=== PATIENT | female | born 1935 | race Caucasian/White ===

== ENCOUNTER → 2018-09-30 | Outpatient (CLI) | payer MEDICARE, BC ==
--- NOTE | 2018-09-30 09:31 | FL ---
EXAMINATION TYPE: FL barium swallow DATE OF EXAM: 09/30/2018 CLINICAL HISTORY: Dysphagia per order. Reflux. Food getting stuck upper thorax per patient. TECHNIQUE: A double contrast esophagram is performed utilizing air and barium. A total of 36 second s of fluoroscopic time was utilized during procedure. 41 spot images are saved. COMPARISON: CT abdomen and pelvis April 24, 2015. FINDINGS: The esophagus shows satisfactory motility and emptying into the stomach. No evidence of fi xed hiatal hernia or stricture noted. No abnormal outpouching or diverticulum is present. No signific ant gastroesophageal reflux was seen during real time performance of this study. IMPRESSION: No significant abnormality is seen to account for patient's symptoms.
== END | disposition home or self-care (01) ==
LOC: RADFLWHC 08:48
PROVIDERS: ATTEND Family Medicine
DX: R13.10 Dysphagia, unspecified (principal)
CPT/HCPCS: 74220

== ENCOUNTER → 2019-04-27 | Outpatient (CLI) | payer MEDICARE, BC ==
[2019-04-27 15:14] LABS: African American GFR (CKD) >90 (>60 ml/min/1.73 sqM); Blood Urea Nitrogen 23 mg/dL (7-17); Non-African American GFR(CKD) 85 (>60 ml/min/1.73 sqM)
--- NOTE | 2019-04-27 15:52 | CT ---
EXAMINATION TYPE: CT soft tissue neck w con DATE OF EXAM: 04/27/2019 COMPARISON: None HISTORY: sore throat, cough CT DLP: 318.5 mGycm CONTRAST: CT scan of the neck is performed with IV Contrast, patient injected with 100 mL of Isovue 300. Contrast enhanced CT of the neck was performed from the skull base through the lung apices. AIRWAY: The supraglottic, glottic, and subglottic portions of the airway appear patent and free of mass. SALIVARY GLANDS: The submandibular and parotid glands are free of mass or inflammatory process. THYROID GLAND: No nodules or masses seen. LYMPH NODES: No adenopathy seen greater than 1cm. LUNG APICES: No nodule or mass is seen. OTHER: Vascular structures are patent. Postoperative changes upper cervical spine posteriorly. Sever e multilevel degenerative disc disease and spondylosis. No abscess seen. IMPRESSION: No distinct abnormality to account for the patient's symptoms.
== END | disposition home or self-care (01) ==
LOC: RADCTMAIN 14:39
PROVIDERS: ATTEND Otolaryngology
DX: J01.90 Acute sinusitis, unspecified (principal); R05 Cough; Z88.2 Allergy status to sulfonamides
CPT/HCPCS: 82565; 84520; 70491; 36415; Q9967

== ENCOUNTER → 2022-11-14 | Outpatient (CLI) | payer MEDICARE ==
--- NOTE | 2022-11-14 09:27 | US ---
EXAMINATION TYPE: US mass soft tissue chest/back DATE OF EXAM: 11/14/2022 COMPARISON: NONE CLINICAL INDICATION: Female, 87 years old with history of D17.1 BENIGN LIPOMATOUS NEOPLASM OF SKIN, S UBCU OF; Large palpable of lower right/gluteal region x 40-50 years that patient states has moved. N o pain. TECHNIQUE: Multiple sonographic images taken of patients area of concern FINDINGS: At palpable region, hypoechoic nonvascular lesion = 8.3 x 7.4 x 4.2 cm IMPRESSION: Nonvascular hypoechoic mass may reflect a lipoma however mass of other etiology is not e xcluded. Consider MR correlation. Correlate clinically.
== END | disposition home or self-care (01) ==
LOC: RADUSWWP 08:43
PROVIDERS: ATTEND Family Medicine
DX: D17.1 Benign lipomatous neoplasm of skin and subcutaneous tissue of trunk (principal)